=== PATIENT | female | born 1965 | race Caucasian/White ===

== ENCOUNTER 2017-01-04 23:03 | Emergency (ER) | payer OTHER ==
[~2017-01-04] VITALS: Ht 180.3 cm; Wt 72.6 kg
[2017-01-04] MEDS ORDERED: IRON (23:31)
--- NOTE | 2017-01-04 23:45 | NUR ---
Pt ambulated to room with steady gait. Pt c/o low back-flank pain, left side greater than the right since approx 1500. Pt also c/o nausea and two episodes of diarrhea. Pt stated she hasnt urinated in approx 12 hrs. Abd firm,distended and tender to palpation. Received verbal order for straight cath, straight cath done UA obtained. Output approx 450 however abd was still firm and distended. Bladder didnt appear to be completely emptied with straight cath. Dr. Almazan notified. Pt resting in position of comfort for self. Awaiting further eval.
--- NOTE | 2017-01-04 23:55 | NUR ---
Dr. Almazan at bedside for MSE. Confirmed bladder remains full with u/s
--- NOTE | 2017-01-05 00:05 | NUR ---
IV established after multiple attempts. Pt medicated for discomfort, will monitor for effects of medication. Pt resting in position of comfort for self.
[2017-01-05] MEDS ORDERED: HYDROMORPHONE 2 MG/1 ML DISP.SYRIN ONE ×2 (00:12→02:32)
[2017-01-05] MEDS ORDERED: ONDANSETRON 4 MG/2 ML VIAL ONE ×2 (00:12→04:30)
[2017-01-05 00:17] LABS: *BILIRUBIN,URIN NEGATIVE (NEGATIVE); *BLOOD, URINE NEGATIVE (NEGATIVE); *COLOR,URINE STRAW (YELLOW); *KETONES,URINE NEGATIVE (NEGATIVE); *PROTEIN,URINE NEGATIVE (NEGATIVE); *UROBILINOGEN,URINE 0.2 E.U./dl (NORMAL); LEUKOCYTE ESTERASE ,URINE NEGATIVE (NEGATIVE); NITRITE, URINE NEGATIVE (NEGATIVE); PH,URINE 5.5 (5.0-8.0); UGLUCOSE NEGATIVE (NEGATIVE)
[2017-01-05 00:31] LABS: *CLARITY,URINE HAZY (CLEAR)
--- NOTE | 2017-01-05 00:35 | NUR ---
Indwelling tracy inserted for remaining urinary retention. Approx 600 output.
[2017-01-05 00:36] LABS: BACTERIA,URINE NONE SEEN /HPF (NONE SEEN); RBC,URINE NONE SEEN /HPF (0-3); SQUAMOUS EPITHELIAL CELL,UR FEW /HPF (NONE SEEN); WBC,URINE NONE SEEN /HPF (0-3)
[2017-01-05 00:43] LABS: CARBON DIOXIDE 23 mmol/L (21-32); CHLORIDE 104 mmol/L (98-107); CREATININE 0.7 mg/dL (0.6-1.3); GLUCOSE 96 mg/dL (74-106); POTASSIUM 3.8 mmol/L (3.5-5.1); UREA NITROGEN, BLOOD 12 mg/dL (7-18)
[2017-01-05 00:47] LABS: BASOPHILS % (AUTO) 0.4 % (0.0-2.0); EOSINOPHILS # (AUTO) 0.2 K/uL (0.0-0.7); EOSINOPHILS % (AUTO) 3.4 % (0.0-7.0); LYMPHOCYTES # (AUTO) 1.7 K/UL (0.8-4.8); LYMPHOCYTES % (AUTO) 35.4 % (20.5-51.5); MEAN CORPUSCULAR HEMOGLOBIN 35.4 UUG (27.0-31.0); MEAN CORPUSCULAR HGB CONC 34 g/dL (32.0-37.0); MEAN CORPUSCULAR VOLUME 103.5 FL (81.0-99.0); MONOCYTES # (AUTO) 0.4 K/UL (0.1-1.30); MONOCYTES % (AUTO) 7.6 % (0.0-11.0); NEUTROPHILS # (AUTO) 2.6 K/UL (1.8-8.9); NEUTROPHILS % (AUTO) 53.2 % (38.5-71.5); PLATELET COUNT (AUTO) 221 K/UL (150-450); RED BLOOD CELL COUNT(AUTO) 3.67 MIL/UL (4.2-5.4); WHITE BLOOD COUNT (AUTO) 4.9 K/UL (4.0-11.2)
[2017-01-05 00:49] LABS: ALANINE AMINOTRANSFERASE 57 U/L (14-59); ALKALINE PHOSPHATASE 94 U/L (50-136); ASPARTATE AMINOTRANSFERASE 49 U/L (15-37); BILIRUBIN,DIRECT < 0.1 mg/dL (0.0-0.2); BILIRUBIN,TOTAL 0.2 mg/dL (0.2-1.0); TOTAL PROTEIN, SERUM 7.4 g/dL (6.4-8.2)
--- NOTE | 2017-01-05 01:00 | NUR ---
Pt sts pain has improved. Pt resting in position of comfort for self. Pt appears calmer, no longer restless, able to lay still, grimacing no longer noted.
[2017-01-05] MEDS ORDERED: HYDROMORPHONE 1 MG/1 ML DISP.SYRIN IV ONE ×2 (02:00)
--- NOTE | 2017-01-05 02:00 | NUR ---
Dr. Almazan into speak with pt. Awaiting further orders.
--- NOTE | 2017-01-05 02:25 | NUR ---
First IV infiltrated and was removed, catheter intact, drsg applied. New IV established and pt medicated for discomfort, will monitor for effects of medication. Pt repositioned for comfort. Pt to CT via [place]
--- NOTE | 2017-01-05 02:44 | NUR ---
Pt returned from CT via [place]. Pt sts pain is improving with medication. Sts pain is down to a 5/10 and is dull. Pt no complaints at this time, awaiting CT results
--- NOTE | 2017-01-05 04:00 | NUR ---
Pt to be discharged when is able to pick pt up approx between [id number]. Indwelling tracy dc'd at this time.
--- NOTE | 2017-01-05 04:15 | NUR ---
Pt is complaining of nausea. Dr. Almazan notified. Received verbal order for zofran 4mg IVP. Pt medicated, will monitor for effects of medication. Also received verbal order for 1 L NS bolus and to monitor pt for urinary retention between now and time of discharge. Pt resting in position of comfort for self.
--- NOTE | 2017-01-05 04:35 | NUR ---
Pt c/o pain increasing. Dr. Almazan notified and received verbal order for one tab of [place] 10. Pt medicated for discomfort. Will monitor for effects of medication.
[2017-01-05] MEDS ORDERED: HYDROCODONE/APAP 10-325 MG TABLET ONE (04:48)
--- NOTE | 2017-01-05 05:35 | NUR ---
Verbal orders for zofran 4 mg IVP, norco 10/325 one tab and 1 L NS bolus placed in [facility] by Dr. Almazan at this time. Fluid bolus completed. Nausea resolved and pain improved from medications.
[2017-01-05] MEDS ORDERED: ONDANSETRON IV *ER 4 MG/2 ML VIAL IV ONE ×2 (05:45)
[2017-01-05] MEDS ORDERED: HYDROCODONE/APAP 10-325 MG TABLET PO ONE (05:45)
[2017-01-05] MEDS ORDERED: IV NORMAL SALINE 1000 ML BAG IV ONE (05:45)
--- NOTE | 2017-01-05 06:26 | NUR ---
Pt ambulated to and from br with one person assist. Pt appeared to have moderate shaking. Dr. Almazan notified and accucheck done - 82. Pt was able to urinate without problems. Pt waiting for to arrive to be dc'd
--- NOTE | 2017-01-05 06:43 | NUR ---
Pt stable for discharge per Dr. Almazan. IV dc'd, catheter intact. Drsg applied. No problems noted to site. Pt given ACI. Pt verbalized understanding of dc instructions. Pt ambulated out of ER to to wait for .
[2017-01-05 06:47] VITALS: BP 143/81
== END 2017-01-05 06:48 | disposition home or self-care (01) ==
LOC: ER 23:03
DX: R33.9 Retention of urine, unspecified (principal); N20.0 Calculus of kidney; Z87.442 Personal history of urinary calculi; Z88.0 Allergy status to penicillin; D64.9 Anemia, unspecified
CPT/HCPCS: 36415; 51701; 74176; 80048; 80076; 81001; 82962; 84484; 84703; 85025; 87086; 96361; 96374; 96375; 96376; 99285; A4663; C1758; J1170 ×2; J2405 ×2; 70030-TC